=== PATIENT | male | born 1975 | race Caucasian/White ===

== ENCOUNTER 2025-03-15 13:24 | Emergency (ER) | payer OTHER ==
[~2025-03-15] VITALS: Ht 188 cm; Wt 122.7 kg
[2025-03-15 13:38] VITALS: BP 133/75; PULSE 87; RESP 16; TEMP 97.7; O2SAT 98
[2025-03-15] MEDS ORDERED: BACI28.410 TP (15:05)
[2025-03-15] MEDS ORDERED: IBUP-1492 PO (15:05)
== END 2025-03-15 15:11 | disposition home or self-care (01) ==
LOC: EMS 13:37
DX: T25.222A Burn of second degree of left foot, initial encounter (principal); I11.0 Hypertensive heart disease with heart failure; I50.9 Heart failure, unspecified; F17.210 Nicotine dependence, cigarettes, uncomplicated; Y92.89 Other specified places as the place of occurrence of the external cause
CPT/HCPCS: 99282; Z7502

== ENCOUNTER 2025-03-23 12:55 | Emergency (ER) | payer OTHER ==
[~2025-03-23] VITALS: Ht 190.5 cm; Wt 126.8 kg
[~2025-03-23 12:55] MED LIST: BACI28.410 TP; IBUP-1492 PO
[2025-03-23 13:05] VITALS: BP 113/62; PULSE 86; RESP 18; TEMP 98.9; O2SAT 99
[2025-03-23 14:02] LABS: PLATELET COUNT (AUTO) 225 K/uL (150-450); RED BLOOD CELL COUNT(AUTO) 4.74 MIL/uL (4.50-5.90); RED CELL DISTRIBUTION WIDTH 13.3 % (11.5-14.5); WHITE BLOOD COUNT (AUTO) 5.5 K/uL (4.5-11.0)
[2025-03-23 14:11] LABS: CALCIUM, TOTAL 9.1 mg/dL (8.8-10.5); CREATININE 0.90 mg/dL (0.60-1.30); GLOMERULAR FILTR. RATE CALC > 60 mL/min (>60); GLUCOSE,RANDOM 104 mg/dL (70-110); SODIUM SERUM 139 mmol/L (136-145); UREA NITROGEN, BLOOD 10 mg/dL (7-18)
[2025-03-23 14:23] LABS: LACTIC ACID 1.5 mmol/L (0.4-2.0)
[2025-03-23] MEDS ORDERED: DOXY-354 PO (14:45)
[2025-03-23] MEDS ORDERED: TRAM50TA5 PO (14:45)
[2025-03-23] MEDS: HYDROCODONE/ACETAMINOPHEN 5-325 MG TABLET PO ONE (14:49)
[2025-03-23] MEDS: DOXYCYCLINE HYCLATE 100 MG TABLET PO ONE (14:50)
== END 2025-03-23 15:24 | disposition home or self-care (01) ==
LOC: EMS 12:58
DX: L03.116 Cellulitis of left lower limb (principal); T23.222A Burn of second degree of single left finger (nail) except thumb, initial encounter; I11.0 Hypertensive heart disease with heart failure; I50.9 Heart failure, unspecified; F17.210 Nicotine dependence, cigarettes, uncomplicated; Z79.899 Other long term (current) drug therapy; Y92.89 Other specified places as the place of occurrence of the external cause
CPT/HCPCS: 80048; 83605; 83880; 85025; 87040; 99283